=== PATIENT | male | born 1965 | race Caucasian/White ===

== ENCOUNTER 2023-12-23 08:38 | Outpatient (CLI) | payer BC, SELFPAY ==
[2024-01-13 10:30] VITALS: BMI 34.2
--- NOTE | 2024-01-13 10:30 | WPDSLEEPSTUD ---
Sleep Study Date of Study: 12/23/23 Ordering Provider: Hima Walker MD Interpreting Physician: Arti Alfaro DO Sleep Study Type: CPAP Titration Height: 1.73 m Weight: 102.058 kg Body Mass Index: 34.2 Neck Circumference (inches): 20 [place]: 12 Reason for Sleep Study Snoring and unrefreshing sleep despite using CPAP. The patient had a SNAP home sleep test on 12/01/2022 that showed an AHI of 11.6 with desaturation down to 88%. Sleep History The patient is a 58 male with hypertension, benign prostatic hyperplasia, secondary polycythemia, urinary incontinence and previously diagnosed sleep apnea on CPAP that had a PAP titration study ordered by his primary care for under refreshing sleep despite using CPAP. Patient denies awakening from sleep short of breath. He denies awakening at night with heartburn, belching or cough. He occasionally snores but his rarely loud enough that others complain. He denies having trouble sleeping when he has a cold. He denies waking up gasping for air throughout the night. He denies having breathing problems at night observed by himself or others. He denies sweating excessively at night. He denies having heart palpitations or irregular heartbeats during the night. He frequently falls asleep during the day but never while driving. He denies sleep paralysis, cataplexy and hypnagogic / hypnopompic hallucinations. He occasionally has trouble at school or work due to sleepiness. He denies feeling afraid of going to sleep. He denies having nightmares. He denies remembering his dreams. He rarely has thoughts racing through his mind. He denies feeling sad, depressed or anxious. He denies having muscular tension. He denies noticing parts of his body jerk. He denies kicking during the night. He denies having crawling and aching feelings in his legs and denies having leg pain during the night. he rarely grinds his teeth during sleep but denies awakening morning jaw pain. He denies being bothered by pain during the day and denies being awakened by pain during the night. He denies waking feeling stiff in morning. He denies waking up with sore or achy muscles. He denies waking up with pain in the neck, spine and other joints. He goes to bed at midnight both weekdays and weekends. It takes him about 5 minutes to fall asleep. He wakes up once throughout the night to urinate and is able to fall back asleep within 10 minutes. He wakes up at 7:00 a.m. on weekdays and 8:00 a.m. weekends. He typically gets 6-7 hours of sleep per night. He will stay in bed for less than 5 minutes after waking up in the morning. He currently lives with his . He will consume caffeinated beverages within 2 hours of bedtime. He denies engaging in physical exercise before bedtime. He denies reading and watching television before falling asleep. He will take naps in the afternoon or the evening but they are not refreshing. He consumes 3-4 cups of caffeinated tea per day. He denies tobacco, alcohol and recreational drug use. Sleep Procedure A full night polysomnogram using the [employer] multi-channel system recorded the standard physiologic parameters including EEG, EOG, submentalis EMG, anterior tibialis EMG, EKG, body position, nasal and oral airflow using PAP device flow signal.? Respiratory parameters of chest and abdominal movements were recorded with Respiratory Inductance Plethysmography belts. Oxygen saturation was recorded by pulse oximetry. Video monitoring was also performed. Sleep stages, periodic limb movements, and EEG arousals were scored in 30 second epochs according to the criteria of the AASM Scoring Manual. The Apnea-Hypopnea Index was calculated using CMS guidelines for definition of hypopnea with 4% O2 desaturations while scoring respiratory events. Sleep Architecture The total recording time was 466.5 minutes.? The total sleep time was 439.5 minutes. Sleep latency was 3.3 minutes. REM latency was 60.5 [place]
== END 2023-12-24 06:37 | disposition home or self-care (01) ==
LOC: ANHCSM 08:41
PROVIDERS: Visit Provider Emergency Medicine
DX: G47.33 Obstructive sleep apnea (adult) (pediatric) (principal)
CPT/HCPCS: 95811

== ENCOUNTER 2024-08-07 10:59 | Outpatient (CLI) | payer BC, SELFPAY ==
--- NOTE | ~2024-08-07 | US_ITS ---
EXAMINATION: US soft tissue abdomen DATE: 08/07/2024 11:13 INDICATION: Hernia. Abdominal bulge. TECHNIQUE: Multiple grayscale and Doppler ultrasound images of the abdomen were obtained. COMPARISON: CT abdomen pelvis 11/12/2017 FINDINGS: There is no periumbilical hernia. IMPRESSION: 1. No periumbilical hernia. Reviewed, dictated and finalized at location A. IMPRESSION: 1. No periumbilical hernia.
== END 2024-08-07 11:00 | disposition home or self-care (01) ==
LOC: MICIMG 11:00
PROVIDERS: PCP Emergency Medicine; Visit Provider Emergency Medicine
DX: K46.9 Unspecified abdominal hernia without obstruction or gangrene (principal)
CPT/HCPCS: 76705

== ENCOUNTER 2024-10-15 01:33 | Day surgery (SDC) | payer BC, SELFPAY ==
[2024-09-16 10:54] VITALS: BMI 33.2
[2024-10-05 16:09] VITALS: BMI 33.2
[2024-10-15 12:40] VITALS: BP 137/91; PULSE 75; RESP 18; TEMP 36.1; O2SAT 96
[2024-10-15] MEDS: LACTATED RINGERS 1,000 ML 150 ML IV CONT (12:52)
--- NOTE | 2024-10-15 13:14 | WPDANESEPPF ---
Anes - Initial Pre Proc Eval Procedure: Operation Date: 10/15/24 14:00 Proposed Procedures p Screening Colonoscopy - Gary Castelan MD Date/Time: 10/15/24 13:14 Surgeon: aGry Castelan MD Pre Op Diagnosis: Hx Colon Polyps (Z86.010) Patient Data Age: 59 Gender: M Height: 1.73 m Weight: 100.7 kg Last Vital Signs Temp 97 F L 10/15/24 12:40 Pulse 75 10/15/24 12:40 Resp 18 10/15/24 12:40 BP 137/91 H 10/15/24 12:40 Pulse Ox 96 10/15/24 12:40 O2 Del Method Room Air 10/15/24 12:40 Allergies Allergy/AdvReac Type Severity Reaction Status Date / Time amoxicillin Allergy Mild Rash Verified 10/15/24 12:35 Home Medications ?Medication ?Instructions ?Recorded ?Confirmed ?Type aspirin 81 mg chewable tablet 81 mg PO DAILY 09/16/24 10/15/24 History celecoxib 200 mg capsule 200 mg PO DAILY 09/16/24 10/15/24 History irbesartan 150 mg tablet 150 mg PO DAILY 09/16/24 10/15/24 History mirabegron 50 mg tablet,extended 50 mg PO DAILY 09/16/24 10/15/24 History release 24 hr (Myrbetriq) tadalafil 5 mg tablet 5 mg PO DAILY 09/16/24 09/16/24 History Patient hx anesthesia problems: none Family hx anesthesia problems: none Results Review: All pre-operative results and documents have been reviewed as part of the pre-operative evaluation. [facility] Social History Social History Smoking status: Never smoker Alcohol intake: never Substance use: never Substance use type: does not use Living arrangements: with family Spiritual care concerns: No Anes - Eval Final PreProcedure Day of Procedure 10/15/24 13:14 Patient weight: obese Heart: regular rate and rhythm Lungs: clear to auscultation Neurological: alert and oriented Last oral intake: >/= 8 hours Emergent: no Anesthetic plan: proceed Anesthesia type and monitoring: general GIVS and standard monitoring Results Review: All pre-operative results and documents have been reviewed as part of the pre-operative evaluation. Informed Consent: The patient's anesthetic plan and its attendant risks and benefits were discussed with the patient/family/POA. Questions were solicited and answers provided to the satisfaction of the patient/family/POA.
--- NOTE | 2024-10-15 13:30 | PM.IMHP ---
H&P: HPI History of Present Illness Date/Time: 10/15/24 13:30 Chief Complaint: Screening colonoscopy Narrative: This is the patient's 2nd colonoscopy after 10 years.. There are no GI symptoms and there is no family history of colorectal cancer. Review of Systems Review of Systems: All systems reviewed & are unremarkable except as noted in HPI and below PMFSH Social History Social History Smoking status: Never smoker Alcohol intake: never Substance use: never Substance use type: does not use Living arrangements: with family Spiritual care concerns: No Meds Home Medications and Allergies Home Medications ?Medication ?Instructions ?Recorded ?Confirmed ?Type aspirin 81 mg chewable tablet 81 mg PO DAILY 09/16/24 10/15/24 History celecoxib 200 mg capsule 200 mg PO DAILY 09/16/24 10/15/24 History irbesartan 150 mg tablet 150 mg PO DAILY 09/16/24 10/15/24 History mirabegron 50 mg tablet,extended 50 mg PO DAILY 09/16/24 10/15/24 History release 24 hr (Myrbetriq) tadalafil 5 mg tablet 5 mg PO DAILY 09/16/24 09/16/24 History Allergies Allergy/AdvReac Type Severity Reaction Status Date / Time amoxicillin Allergy Mild Rash Verified 10/15/24 12:35 Vital Signs Vital Signs - 24 hr 10/15/24 12:40 Temperature 97 F L Pulse Rate 75 Respiratory Rate 18 Blood Pressure 137/91 H Pulse Oximetry 96 Oxygen Delivery Room Air Exam Const: General: cooperative and healthy appearing Resp: Effort & Inspection: normal respiratory effort and able to speak in complete sentences Auscultation: clear to auscultation bilaterally Cardio: Rate: regular rate Rhythm: regular rhythm GI: Inspection: normal to inspection GI Palp: No No hepatosplenomegaly present Auscultation: normal bowel sounds Rectal Exam: deferred Skin: General skin exam: normal color Psych: Appearance: grossly normal Mental Status: mental status grossly normal Assessment and Plan Assessment and plan (1) Screening for colorectal cancer: Code(s): Z12.11 - Encounter for screening for malignant neoplasm of colon; Z12.12 - Encounter for screening for malignant neoplasm of rectum Status: Acute Assessment and Plan: The patient is deemed a good candidate for the procedure. Consent signed. Will proceed.
[2024-10-15 14:01] VITALS: BP 128/83; PULSE 74; RESP 20; O2SAT 94
[2024-10-15 14:11] VITALS: BP 120/80; PULSE 71; RESP 18; O2SAT 96
[2024-10-15 14:21] VITALS: BP 134/88; PULSE 68; RESP 18; O2SAT 96
== END 2024-10-15 14:30 | disposition home or self-care (01) ==
PROVIDERS: PCP Emergency Medicine; Visit Provider Internal Medicine Gastroenterology
PROC: 0DJD8ZZ Inspection of Lower Intestinal Tract, Via Natural or Artificial Opening Endoscopic (ICD-10-PCS; CPT 45378; principal; 2024-10-15 14:00)
DX: Z12.11 Encounter for screening for malignant neoplasm of colon (principal); E66.9 Obesity, unspecified; Z68.33 Body mass index [BMI] 33.0-33.9, adult
CPT/HCPCS: 45378; J2003; J2704; J7120

== ENCOUNTER 2025-04-23 14:19 | Outpatient (CLI) | payer BC, SELFPAY ==
--- NOTE | ~2025-04-23 | XR_ITS ---
[id number] Ordering provider: Hima Walker MD History: . pain in lt knee . Comparison: None. FINDINGS: BONES: No acute fracture or dislocation. JOINT SPACES: Narrowing of the medial compartment. SOFT TISSUES: Normal. IMPRESSION: No acute osseous abnormality left knee. Mild osteoarthritic changes. Reviewed, dictated and finalized at location A.
== END 2025-04-23 14:20 | disposition home or self-care (01) ==
PROVIDERS: PCP Emergency Medicine; Visit Provider Emergency Medicine
DX: M17.12 Unilateral primary osteoarthritis, left knee (principal)
CPT/HCPCS: 73560